=== PATIENT | male | born 1980 | race Caucasian/White ===

== ENCOUNTER 2016-10-29 13:01 | Emergency (ER) | payer OTHER ==
[2016-10-29 14:43] LABS: Urine Appearance Cloudy; Urine Bilirubin Negative (NEGATIVE); Urine Blood 150 /ul (NEGATIVE); Urine Color Yellow; Urine Ketone Negative (NEGATIVE); Urine Protein 30 mg/dL (NEGATIVE)
[2016-10-29 14:44] LABS: Urine Bacteria 4+; Urine Nitrite Negative (NEGATIVE); Urine Urobilinogen Normal (NORMAL); Urine WBC >50 /hpf (0-5)
[2016-10-29] MEDS ORDERED: HYDROmorphone HCL 1 MG/ML DISP.SYRIN IV ONE (15:26)
[2016-10-29] MEDS ORDERED: NORMAL SALINE 1,000 ML IV ONE (15:29)
[2016-10-29] MEDS ORDERED: HYDROmorphone HCL 1 MG/ML DISP.SYRIN ONE (15:37)
--- OUTSIDE RECORDS SUMMARY | 2016-10-29 15:42 | XMS REPORT | Continuity of Care Document ---
:1980 Author Organization [facility] ([facility]) Address [address] [place] [address] Phone [phone] Care Team Providers Name Role Phone MarianaBenny Primary Care Provider [phone] Source Comments This disclosure is being made pursuant to the Care Everywhere program, applicable federal and state laws, and may not contain all informaitonavailable regarding this patient.[facility] ([facility]) Active Allergies and Adverse Reactions No Known Allergies Current Medications Prescription Sig. Disp. Refills Start Date End Date Status warfarin 1 mg tablet Take 2 mg by mouth Active daily INR/Dosing per Jonathan Peña, #[phone] metFORMIN 500 mg tablet Take 500 mg by mouth Active daily. loratadine 10 mg tablet Take 10 mg by mouth Active daily as needed (Seasonal Use) OXYGEN-AIR DELIVERY at bedtime Active SYSTEMS (HORIZON NASAL CPAP SYSTEM NA ) HYDROCODONE-ACETAMINOPHE 12/25/2014 Active N 5-325 mg per tablet ONDANSETRON 8 mg 12/25/2014 Active disintegrating tablet TAMSULOSIN 0.4 mg 12/31/2014 Active capsule Active Problems Problem Noted Date Morbid obesity 03/12/2015 Paroxysmal atrial fibrillation 04/06/2013 Tachycardia-induced cardiomyopathy 02/14/2013 Biventricular heart failure with reduced left ventricular function 02/14/2013 Atrial fibrillation with rapid ventricular response 02/14/2013 Biventricular CHF (congestive heart failure) 02/13/2013 Systolic CHF, acute on chronic 02/13/2013 Pneumonia, organism unspecified 02/08/2013 Cough 02/08/2013 Tobacco use disorder 01/06/2013 HTN (hypertension) 01/06/2013 Obesity, unspecified 01/06/2013 Mediastinal mass 01/06/2013 Dysphagia 01/06/2013 Cardiomyopathy in other diseases classified elsewhere 01/06/2013 DVT, lower extremity 01/06/2013 Hyperlipidemia 01/06/2013 Resolved Problems Problem Noted Date Resolved Date Atrial fibrillation status post cardioversion 01/06/2013 04/06/2013 Immunizations Name Dates Previously Given Next Due Pneumococcal Polysaccharide, PPSV23 (Pneumovax 23) 02/09/2013 Pneumococcal, unspecified 12/24/2012 Social History Tobacco Use Types Packs/Day Years Used Date Former Smoker Cigarettes 0.5 15 Smokeless Tobacco: Never Used Tobacco Cessation:Ready to Quit: Yes; Counseling Given: Yes Comments: Alcohol Use Drinks/Week oz/Week Comments Yes 1 Cans of beer Last Filed Vital Signs Vital Sign Reading Time Taken Blood Pressure 122/64 03/12/2015 12:54 PM CDT Pulse 95 03/12/2015 10:53 AM CDT Temperature 35.8 C (96.4 F) 10/24/2014 9:32 AM CDT Respiratory Rate 14 03/12/2015 10:53 AM CDT Height 1.854 m (6' 1") 03/12/2015 10:53 AM CDT Weight 138.347 kg (305 lb) 03/12/2015 10:53 AM CDT Body Mass Index 40.25 03/12/2015 10:53 AM CDT Oxygen Saturation 95% 03/12/2015 12:54 PM CDT Plan of Care Health Maintenance Due Date Last Done Comments Hepatitis B Vaccine (1 of 3 - Primary Series) 1980 Tdap Vaccine 1989 MMR Vaccine 1996 Td Vaccine 1996 Influenza Vaccine: Seasonal (Season Ended) 2017 Lipid Disorder Screening 01/03/2018 01/03/2013 Pneumococcal Vaccine Completed 02/09/2013 Results from Last 3 Months Not on file
--- OUTSIDE RECORDS SUMMARY | 2016-10-29 15:42 | XMS REPORT | Continuity of Care Document ---
:1980 Author Organization [facility] [place] [address] Care Team Providers Name Role Phone MarianaBenny Primary Care Provider [phone] Source Comments This disclosure is being made pursuant to the [employer] program and contain all information available regarding this patient.[facility] Active Allergies and Adverse Reactions No Known Allergies Current Medications Be aware that medications may not be up to date as of this document. Alwaysverify current medications with the patient. Prescription Sig. Disp. Refills Start Date End Date Status warfarin (COUMADIN) Take 2 mg by Active 2 MG tablet mouth every evening. metFORMIN Take 500 mg Active (GLUCOPHAGE) 500 MG by mouth 2 tablet (two) times daily with meals. metoprolol Take 100 mg Active succinate by mouth (TOPROL-XL) 100 MG daily. 24 hr tablet atorvastatin 09/12/2016 Active (LIPITOR) 20 MG tablet amiodarone Take 1 tablet 30 tablet 11 10/13/2016 Active (PACERONE) 200 MG by mouth tablet daily. amiodarone Take 200 mg 10/12/2016 Discontinued (PACERONE) 200 MG by mouth tablet daily. atorvastatin Take 20 mg by 10/12/2016 Discontinued (LIPITOR) 10 MG mouth daily. tablet amiodarone Take 1 tablet 30 tablet 3 10/12/2016 10/13/2016 Discontinued (PACERONE) 200 MG by mouth tablet daily. sulfamethoxazole-tr Take 1 tablet 8 tablet 0 10/13/2016 10/17/2016 imethoprim (BACTRIM by mouth 2 DS,SEPTRA DS) (two) times 800-160 MG per daily. tablet Active Problems Problem Noted Date Gross hematuria 06/11/2014 Most Recent Encounters Date Type Specialty Providers Description 10/13/2016 Refill Cardiology Deisy Leon CMA Medication Refill 10/13/2016 Telephone Cardiology Deisy Leon CMA Results 10/12/2016 Office Visit Cardiology Meghan Murdock NP Coronary artery disease involving [place] coronary artery of [place] heart without angina pectoris (Primary Dx); Paroxysmal atrial fibrillation (HCC); On amiodarone therapy; Dysuria; History of DVT (deep vein thrombosis) 10/12/2016 Orders Only Cardiology Deisy Leon CMA Social History Tobacco Use Types Packs/Day Years Used Date Former Smoker 0.5 20 Smokeless Tobacco: Former User Quit: 10/24/2014 Tobacco Cessation:Counseling Given: Yes Comments: Alcohol Use Drinks/Week oz/Week Comments Yes 6 Cans of beer 3.6 Last Filed Vital Signs Vital Sign Reading Time Taken Blood Pressure 130/78 10/12/2016 2:41 PM CDT Pulse 70 10/12/2016 2:41 PM CDT Temperature 36.6 C (97.9 F) 01/20/2015 3:59 PM CDT Respiratory Rate 20 01/20/2015 3:59 PM CDT Height 1.854 m (6' 1") 12/31/2014 9:59 AM CDT Weight 156.945 kg (346 lb) 06/15/2016 1:40 PM [employer] Body Mass Index 45.66 06/15/2016 1:40 PM [employer] Oxygen Saturation 97% 10/12/2016 2:41 PM CDT Plan of Care Date Type Specialty Providers Description 11/10/2016 Appointment Cardiology Meghan Murdock, [address] [address] [place] [address] [phone] (Fax) Health Maintenance Due Date Last Done Comments Lab-Lipids 1980 LAB-HgA1C 1983 Eye (Ophthalmology) Exam 1988 Foot Exam 1988 Lab-Urine Microalbumin 1988 Tetanus/Pertussis (1 - Tdap) 1997 Influenza Immunization (#1) 2016 Results from Last 3 Months Urinalysis with microscopic (10/12/2016 3:20 PM) Component Value Range *NGUYEN TYPE Clean Catch Color, Fluid Yellow Yellow Clarity, Fluid Turbid(A) Clear Specific [place] 1.016 1.001-1.035 pH 6.5 5.0-8.0 Leukocyte Esterase, UA 3+(A) Negative Nitrite Positive(A) Negative Protein 2+(A) Negative Glucose, Urinalysis Negative Negative Ketones, UA Negative Negative Urobilinogen Negative Negative Bilirubin Urine Negative Negative Blood 3+(A) Negative WBC >200(A)Comment:Culture ordered by lab if not 0-2 already ordered by physician. RBC >50(A) 0-2 Epithelial Cells, Fluid None <2+ Bacteria 4+(A) None Specimen Cln Catch Narrative Testing performed at [facility], [address] [place] [address].[employer] Guille Cruz MD Urine culture (10/12/2016 3:20 PM) Component Value Range Urine Culture, Routine Microbiology resultsComment: NGUYEN TYPE Clean Catch COLONY COUNT >100,000 cfu/ml RESULT Escherichia coli (Isolate 1) SENSITIVITY ANALYSISIsolate 1 AMPICILLIN >16R AMPICILLIN-NDEZGNNGB53/8I CEFAZOLIN<=8 S CIPROFLOXACIN >4R NITROFURANTOIN<=32S TRIMETHOPRIM/SULFA<=2/38S Narrative Testing performed at [facility], [address] [place] [address].[employer] Guille Cruz MD EKG 12 lead (10/12/2016 3:01 PM) Narrative Vent Rate: 67 bpm RR Interval: 885 msec [place] Interval: 164 msec QRS Duration: 121 msec QT Interval: 421 msec QTC Interval: 437 msec P-R-T [place]: 62 - -60 - -54 degrees SINUS RHYTHM LEFT ANTERIOR FASCICULAR BLOCK[QRS AXIS <=-45, QR IN I, RS IN II] POSSIBLE LEFT VENTRICULAR HYPERTROPHY[VOLTAGE CRITERIA PLUS LAE OR QRS WIDENING] PROBABLE LATERAL MYOCARDIAL INFARCTION , OF INDETERMINATE AGE [35 ms Q WAVE IN I/aVL/V5/V6] MODERATE T-WAVE ABNORMALITY, CONSIDER INFERIOR ISCHEMIA[-0.1+ mV T WAVE IN II/aVF] ABNORMAL ECG Electronically Signed By: Malinda Galaviz Procedure Note Ian, External Ris In - MonOct 18, 2016 6:31 PM CDT Vent Rate: 67 bpm RR Interval: 885 msec [place] Interval: 164 msec QRS Duration: 121 msec QT Interval: 421 msec QTC Interval: 437 msec P-R-T [place]: 62 - -60 - -54 degrees SINUS RHYTHM LEFT ANTERIOR FASCICULAR BLOCK [QRS AXIS <=-45, QR IN I, RS IN II] POSSIBLE LEFT VENTRICULAR HYPERTROPHY [VOLTAGE CRITERIA PLUS LAE OR QRS WIDENING] PROBABLE LATERAL MYOCARDIAL INFARCTION , OF INDETERMINATE AGE [35 ms Q WAVE IN I/aVL/V5/V6] MODERATE T-WAVE ABNORMALITY, CONSIDER INFERIOR ISCHEMIA [-0.1+ mV T WAVE IN II/aVF] ABNORMAL ECG Electronically Signed By: Malinda Baker M.D.
[2016-10-29 15:54] LABS: Cocaine Ur Negative (NEGATIVE); Urine Barbiturate Negative (NEGATIVE); Urine Benzodiazepines Negative (NEGATIVE); Urine Opiates Negative (NEGATIVE); Urine PCP Negative (NEGATIVE); Urine THC Negative (NEGATIVE)
[2016-10-29 16:23] LABS: Hemoglobin 15.4 gm/dL (13.5-18.0); Mean Cell Volume 88.6 fl (78-100); Mean Corpuscular Hemoglobin 29.7 pg (27-31); Mean Corpuscular Hgb Conc 33.5 g/dl (32-36); Mean Platelet Volume 12.8 fl (6.0-9.5); Neutrophil # 3.2 K/mm3 (1.3-6.0); Neutrophil % 49.5 % (42-75.0); Platelet Count 181 K/mm3 (150-450); Red Blood Count 5.19 M/mm3 (4.7-6.0); Red Cell Distribution Width 13.9 % (11.5-14.0); White Blood Count 6.5 K/mm3 (4.0-10.5)
[2016-10-29 16:30] VITALS: BP 123/91
[2016-10-29 16:34] LABS: Albumin * 3.4 gm/dl (3.4-5.0); Anion Gap 13.6 mmol/L (6.8-13.8); Bilirubin, Total 0.7 mg/dL (0.0-1.1); Ca. Corrected For Albumin 9.3 mg/dL (8.4-10.2); Calcium * 9.1 mg/dL (7.9-10.9); Carbon Dioxide 27.5 mmol/L (24-32.6); Potassium 5.1 mmol/L (3.4-4.6); Total Protein 8.2 gm/dL (6.2-8.2)
--- NOTE | 2016-10-29 17:34 | ERNOTE ---
ER Male HPI Date of Service: 10/29/16 Stated Complaint: UTI ER Male: testicular pain Time Seen by Provider: 10/29/16 15:16 Immunizations: IMMUNIZATION HX Immunizations Up to Date Yes History of Influenza Vaccine No Hx Pneumococcal Vaccination No Allergies/Adverse Reactions: Allergies No Known Allergies Allergy (Verified 10/29/16 16:24) Home Medications: HOME MEDICATIONS Metoprolol Tartrate [Lopressor] 100 mg PO DAILY 02/27/13 [Last Taken Unknown] Warfarin Sodium [Coumadin] 2 mg PO DAILY 02/22/14 [Last Taken Unknown] metFORMIN HCL [Glucophage] 500 mg PO DAILY 10/18/14 [Last Taken Unknown] Amiodarone HCl [Cordarone] 200 mg PO DAILY 08/11/15 [Last Taken Unknown] Atorvastatin Calcium [Lipitor] 20 mg PO DAILY 10/29/16 [Last Taken Unknown] Cefuroxime Axetil [Ceftin] 250 mg PO Q12H #14 tab 10/29/16 [Last Taken Unknown] Cranberry Fruit Extract [Cranberry] 500 mg PO DAILY 10/29/16 [Last Taken Unknown ] HYDROcodone/ACETAMINOPHEN [Hydrocodon-Acetaminophen 5-325] 1 each PO TID PRN # 20 tablet 10/29/16 [Last Taken Unknown] - History of Present Illness Narrative: 36 y/o male presenting to the emergency room for what he states is a UTI. Patient also has testicular pain. Date (Duration): 10/29/16 Timing: Present: getting worse Quality: Present: moderate Onset Location: Present: groin, scrotal Activities at Onset: Present: none Prior Abdominal Problems: Present: none Sexual Matheny History: Present: less than 2 months ago, single partner Modifying Factors - (Improves): Present: rest Modifying Factors - (Worsens): Present: coughing, movement, palpation Associated Symptoms: Present: abdominal pain, dysuria. Absent: fever/chills, diaphoresis, nausea, vomiting Review of Systems - Review of Systems Constitutional: Present: See HPI. Absent: recent illness, fever EYE: Present: no symptoms reported ENT: Present: no symptoms reported Respiratory: Present: no symptoms reported Cardiology: Present: no symptoms reported Gastrointestinal/Abdominal: Present: no symptoms reported Genitourinary: Present: See HPI, pain - to scrotum Musculoskeletal: Present: no symptoms reported Skin: Present: no symptoms reported Neurological: Present: no symptoms reported Endocrine: Present: no symptoms reported Hematologic/Lymphatic: Present: no symptoms reported Psych: Present: no symptoms reported - Patient's Past Medical History Patient History - Medical: ADHD, Diabetes Type 2, Kidney stone, Obesity, UTI'S, Other Patient History - Cardiac/Respiratory: No pertinent hx, Atrial Fibrillation Patient History - Cancer: No Hx of Cancer Patient History - Surgical Procedures: Other Patient History - Other: None - Social History Living Situations: alone Abuse History: No History of abuse Psych History: No pertinent hx Smoking Status: Former smoker Have you smoked in the past 12 months: Yes Alcohol Use: rarely Drug Use: none - Immunizations Immunizations Up to Date: Yes Hx Pneumococcal Vaccination: No History of Influenza Vaccine: No Physical Exam - Physical Exam Narrative: patient c/o left sided lower groin/ abd pain and also of testicular pain.. States he started having symptoms about a week ago, he took OTC cranberry pills and motrin for pain. They did not work. States he has intercourse 3 weeks ago. General Appearance: Present: wd/wn, alert, moderate distress Eye Exam: Normal inspection: bilateral Ears, Nose, Throat: Present: normal ENT inspection, normal pharynx Neck: Present: normal inspection, nontender Respiratory: Present: no respiratory distress, normal breath sounds, no accessory muscle use, chest nontender, lungs clear Cardiovascular/Chest: Present: regular rate, rhythm, no murmur, normal peripheral pulses. Absent: irregularly irregular Gastrointestinal/Abdominal: Present: normal bowel sounds, nontender, nondistended Male Genitals Exam: Present: no hernia, epididymal tenderness, inguinal tenderness, scrotum tenderness (R), scrotum tenderness (L), testicular tenderness (R), testicular tenderness (L) Back Exam: Present: normal inspection, normal range of motion, no CVA tenderness , no vertebral tenderness Extremity Exam: Present: normal inspection, normal range of motion, no edema Neurological Exam: Present: alert, oriented, normal mood/affect, no motor/ sensory deficits Skin Exam: Present: normal color, warm/dry Lymphatic Exam: Present: no adenopathy ED Progress - Results and Orders Patient's Lab Results:: I have reviewed the patient's lab results. Results and Orders: positive UA, elevated liver enzymes. - Vital Signs Vital Signs: Vital Signs 10/29/16 10/29/16 10/29/16 13:51 16:25 16:29 Temperature 36.9 C 37.2 C Pulse Rate 75 102 H Respiratory 16 14 Rate Blood Pressure 159/111 123/91 O2 Sat by Pulse 98 95 Oximetry - CT/Ultrasound CT/Ultrasound Narrative: Technique: Ultrasound grayscale images were obtained of the right and left scrotum. The testicles were evaluated using color-flow and Doppler technique. Findings: Right side: The right testicle measures 4.3 x 2.2 x 2.8 cm. The right testicle is homogeneous in appearance and I'm not convinced of definable lesion. The epididymal head measures 1.0 x 0.7 cm. The epididymal head is within normal limits. The visualized epididymal body appears normal. There is a small amount of fluid identified within the scrotum. There is vascular flow is identified within the right testicle using color-flow and Doppler technique a time of the examination. Left side: The left testicle measures 4.3 x 2.3 x 3.0 cm. The testicular parenchyma is homogeneous in appearance and I'm not convinced of definable lesion. The epididymal head measures 1.5 x 1.4 cm. The epididymal head and body appear mildly prominent. There is a small amount of fluid within the left scrotum. There is vascular flow identified within the left testicle using color-flow and Doppler technique real-time examination. IMPRESSION: 1. VERY SMALL RIGHT SIDED HYDROCELE, OTHERWISE NORMAL RIGHT SCROTUM.. 2. PROMINENT LEFT EPIDIDYMIS, SUGGESTING EPIDIDYMITIS. CLINICAL CORRELATION REQUIRED. 3. SMALL LEFT SIDED HYDROCELE. Electronically signed by Rolando Gatica M.D.. - Progress/Reassessment Chief Complaint: Urinary Tract Problems Progress:: Improved Plan - Plan Plan: patient will be notified of his STD test results by the hospital. Patient encouraged to let his partner know she may need to be tested as well. Departure Clinical Impression: Epididymitis - Departure Disposition: Home Follow Up Needed Condition: Stable Instructions: Epididymitis Additional Instructions: Continue any previous home medications as directed. Follow-up through primary care physician in the next 2-3 days regarding his diagnosis. Take all antibiotics as directed. Return to the emergency room if pain is not able to be controlled, unable to void or you have increased swelling or discomfort. Referrals: Benny Peña MD [Primary Care Provider] - Prescriptions: Cefuroxime Axetil [Ceftin] 250 mg PO Q12H #14 tab HYDROcodone/ACETAMINOPHEN [Hydrocodon-Acetaminophen 5-325] 1 each PO TID PRN # 20 tablet PRN Reason: Pain
== END 2016-10-29 17:45 | disposition home or self-care (01) ==
LOC: ER 13:01
DX: N45.1 Epididymitis (principal); Z87.442 Personal history of urinary calculi; Z87.440 Personal history of urinary (tract) infections; E11.9 Type 2 diabetes mellitus without complications; I48.91 Unspecified atrial fibrillation; Z79.01 Long term (current) use of anticoagulants; Z87.891 Personal history of nicotine dependence

== ENCOUNTER 2016-10-30 16:34 | Emergency (ER) | payer OTHER ==
--- OUTSIDE RECORDS SUMMARY | 2016-10-30 17:06 | XMS REPORT | Continuity of Care Document ---
:1980 Author Organization [facility] [place] [address] Care Team Providers Name Role Phone MarianaBenny Primary Care Provider [phone] Source Comments This disclosure is being made pursuant to the [employer] program and contain all information available regarding this patient.[facility] Active Allergies and Adverse Reactions No Known [...] Meghan Murdock NP Coronary artery disease involving [place] coronary artery of [place] heart without angina pectoris (Primary Dx); Paroxysmal [...] 156.945 kg (346 lb) 06/15/2016 1:40 PM [employer] Body Mass Index 45.66 06/15/2016 1:40 PM [employer] Oxygen Saturation 97% 10/12/2016 2:41 PM CDT Plan of Care Date Type Specialty Providers Description 11/10/2016 Appointment Cardiology Meghan Murdock, [facility] [address] [place] [address] [phone] (Fax) Health Maintenance Due Date Last Done Comments Lab-Lipids 1980 LAB-HgA1C 1983 Eye (Ophthalmology) Exam 1988 Foot Exam 1988 Lab-Urine Microalbumin 1988 Tetanus/Pertussis (1 - Tdap) 1997 Influenza Immunization (#1) 2016 Results from Last 3 Months Urinalysis with microscopic (10/12/2016 3:20 PM) Component Value Range *NGUYEN TYPE Clean Catch Color, Fluid Yellow Yellow Clarity, Fluid Turbid(A) Clear Specific [place] 1.016 1.001-1.035 pH 6.5 5.0-8.0 Leukocyte Esterase, [...] Specimen Cln Catch Narrative Testing performed at [facility], [address] [place] [address].Lathe Hand Guille Cruz MD Urine culture (10/12/2016 3:20 PM) Component Value Range Urine Culture, Routine Microbiology resultsComment: NGUYEN TYPE Clean Catch COLONY COUNT >100,000 cfu/ml RESULT Escherichia coli (Isolate 1) SENSITIVITY ANALYSISIsolate 1 AMPICILLIN >16R AMPICILLIN-BZGFOMTUL30/8I CEFAZOLIN<=8 S CIPROFLOXACIN >4R NITROFURANTOIN<=32S TRIMETHOPRIM/SULFA<=2/38S Narrative Testing performed at [facility], [address] [place] [address].[employer]athe Hand Guille Cruz MD EKG 12 lead (10/12/2016 3:01 PM) Narrative Vent Rate: 67 bpm RR Interval: 885 msec [place] Interval: 164 msec QRS Duration: 121 msec QT Interval: 421 msec QTC Interval: 437 msec P-R-T [place]: 62 - -60 - -54 degrees SINUS [...] Rate: 67 bpm RR Interval: 885 msec [place] Interval: 164 msec QRS Duration: 121 msec QT Interval: 421 msec QTC Interval: 437 msec P-R-T [place]: 62 - -60 - -54 degrees SINUS [...]
--- OUTSIDE RECORDS SUMMARY | 2016-10-30 17:06 | XMS REPORT | Continuity of Care Document ---
:1980 Author Organization [facility] ([facility]) Address [address] [place] [address] Phone [phone] Care Team Providers Name Role Phone MarianaBenny Primary Care Provider [phone] Source Comments This disclosure is being made pursuant to the Care Everywhere program, applicable federal and state laws, and may not contain all informaitonavailable regarding this patient.[facility] ([facility]) Active Allergies and Adverse Reactions No Known Allergies Current Medications Prescription Sig. Disp. Refills Start Date End Date Status warfarin 1 mg tablet Take 2 mg by mouth Active daily INR/Dosing per Jonathan Peña, #[phone] metFORMIN 500 mg tablet Take 500 mg [...]
[2016-10-30] MEDS ORDERED: KETOROLAC TROMETHAMINE 60 MG/2 ML VIAL IM ONE ×2 (17:22→17:28)
[2016-10-30] MEDS ORDERED: DOXYCYCLINE HYCLATE 100 MG TABLET PO ONE (17:23)
[2016-10-30] MEDS ORDERED: HYDROmorphone HCL 1 MG/ML DISP.SYRIN IM ONE (17:25)
[2016-10-30] MEDS ORDERED: HYDROmorphone HCL 1 MG/ML DISP.SYRIN ONE (17:28)
[2016-10-30] MEDS ORDERED: DOXYCYCLINE HYCLATE 100 MG TABLET ONE (17:29)
--- NOTE | 2016-10-30 17:36 | ERNOTE ---
ER Male HPI Date of Service: 10/30/16 Stated Complaint: ENLARGED TESTICLE ER Male: testicular pain Time Seen by Provider: 10/30/16 17:00 Source: patient Exam Limitations: no limitations Immunizations: IMMUNIZATION HX Immunizations Up to Date Yes History of Influenza Vaccine No Hx Pneumococcal Vaccination No Allergies/Adverse Reactions: Allergies No Known Allergies Allergy (Verified 10/30/16 17:25) Home Medications: HOME MEDICATIONS Metoprolol Tartrate [Lopressor] 100 mg PO DAILY 02/27/13 [Last Taken Unknown] Warfarin Sodium [Coumadin] 2 mg PO DAILY 02/22/14 [Last Taken Unknown] metFORMIN HCL [Glucophage] 500 mg PO DAILY 10/18/14 [Last Taken Unknown] Amiodarone HCl [Cordarone] 200 mg PO DAILY 08/11/15 [Last Taken Unknown] Atorvastatin Calcium [Lipitor] 20 mg PO DAILY 10/29/16 [Last Taken Unknown] Cefuroxime Axetil [Ceftin] 250 mg PO Q12H #14 tab 10/29/16 [Last Taken Unknown] Cranberry Fruit Extract [Cranberry] 500 mg PO DAILY 10/29/16 [Last Taken Unknown ] HYDROcodone/ACETAMINOPHEN [Hydrocodon-Acetaminophen 5-325] 1 each PO TID PRN # 20 tablet 10/29/16 [Last Taken Unknown] HYDROcodone/ACETAMINOPHEN [Hydrocodon-Acetaminophen 5-325] 1 each PO TID PRN # 20 tablet 10/30/16 [Last Taken Unknown] - History of Present Illness Narrative: 36-year-old male returning to the emergency room for increased pain and swelling related to his epididymitis in his left testicle. Date (Duration): 10/30/16 Timing: Present: constant Quality: Present: severe Onset Location: Present: scrotal Activities at Onset: Present: none Prior Abdominal Problems: Present: none Sexual Santel History: Present: less than 2 months ago Modifying Factors - (Improves): Present: analgesics, rest Modifying Factors - (Worsens): Present: movement Associated Symptoms: Absent: fever/chills, diaphoresis, nausea, vomiting, dysuria, urinary frequency, polyuria Prior Treatment: Present: recently seen, treated by physician, currently on antibiotics Review of Systems - Review of Systems Constitutional: Present: See HPI, recent illness EYE: Present: no symptoms reported ENT: Present: no symptoms reported Respiratory: Present: no symptoms reported Cardiology: Present: no symptoms reported Gastrointestinal/Abdominal: Present: no symptoms reported Genitourinary: Present: See HPI Musculoskeletal: Present: no symptoms reported Skin: Present: See HPI, change in color - red scrotum Neurological: Present: no symptoms reported Endocrine: Present: no symptoms reported Hematologic/Lymphatic: Present: no symptoms reported Psych: Present: no symptoms reported - Patient's Past Medical History Patient History - Medical: ADHD, Diabetes Type 2, Kidney stone, Obesity, UTI'S, Other Patient History - Cardiac/Respiratory: No pertinent hx, Atrial Fibrillation Patient History - Cancer: No Hx of Cancer Patient History - Surgical Procedures: Other Patient History - Other: None - Social History Living Situations: home Abuse History: No History of abuse Psych History: No pertinent hx Alcohol Use: rarely Drug Use: none - Immunizations Immunizations Up to Date: Yes Hx Pneumococcal Vaccination: No History of Influenza Vaccine: No Physical Exam - Physical Exam Narrative: This 36-year-old male presents to the emergency room. Patient does have increased pain to his testicles. Patient status: Are more red and swollen today than when I saw him yesterday. Patient is tender all over his scrotum. Patient walks with a wide waddling gait prevent pain. General Appearance: Present: wd/wn, alert, no apparent distress Eye Exam: Normal inspection: bilateral Ears, Nose, Throat: Present: normal ENT inspection Neck: Present: normal inspection Respiratory: Present: no respiratory distress, normal breath sounds, no accessory muscle use, chest nontender, lungs clear. Absent: chest tenderness Cardiovascular/Chest: Present: regular rate, rhythm, no murmur, normal peripheral pulses Gastrointestinal/Abdominal: Present: normal bowel sounds, nontender, soft Male Genitals Exam: Present: epididymal tenderness, erythema, scrotum tenderness (R), scrotum tenderness (L), testicular tenderness (R), testicular tenderness (L). Absent: urethral discharge Back Exam: Present: normal inspection, normal range of motion, no CVA tenderness , no vertebral tenderness Extremity Exam: Present: normal inspection, normal range of motion, no edema Neurological Exam: Present: alert, oriented, normal mood/affect, no motor/ sensory deficits Skin Exam: Present: normal color, warm/dry Lymphatic Exam: Present: no adenopathy ED Progress - Vital Signs Patient's Vital Signs:: I have reviewed the patient's vital signs. Vital Signs: Vital Signs 10/30/16 16:38 Temperature 36.2 C L Pulse Rate 90 Respiratory 12 Rate Blood Pressure 147/80 O2 Sat by Pulse 97 Oximetry - Progress/Reassessment Chief Complaint: Genitourinary Problem Progress:: Improved Plan - Plan Plan: Correlating this care with Dr. Clarke he is happy with the current treatment that we are giving this patient at this time. He states that the patient follow -up with him in the office this week regarding his epididymitis. No new orders from the consulting urologist Departure Clinical Impression: Epididymitis - Departure Disposition: Home Follow Up Needed Condition: Stable Instructions: Epididymitis, Form - Excuse from Work, School, or Physical Activity Additional Instructions: Any any previous home medications. Continue current antibiotic regimen. Return to emergency room if symptoms persist or become worse. Follow-up with the urologist next week related to your diagnosis. Referrals: Benny Peña MD [Primary Care Provider] - Prescriptions: HYDROcodone/ACETAMINOPHEN [Hydrocodon-Acetaminophen 5-325] 1 each PO TID PRN # 20 tablet PRN Reason: Pain
[2016-10-30 17:42] VITALS: BP 130/99
== END 2016-10-30 17:42 | disposition home or self-care (01) ==
LOC: ER 16:34
DX: N45.1 Epididymitis (principal); E11.9 Type 2 diabetes mellitus without complications; I48.91 Unspecified atrial fibrillation; Z79.01 Long term (current) use of anticoagulants

== ENCOUNTER 2016-12-16 03:13 | Emergency (ER) | payer OTHER ==
[2016-12-16 03:39] LABS: Hematocrit 45.7 % (42.0-52.0); Hemoglobin 15.2 gm/dL (13.5-18.0); Mean Cell Volume 88.4 fl (78-100); Mean Corpuscular Hemoglobin 29.4 pg (27-31); Mean Corpuscular Hgb Conc 33.3 g/dl (32-36); Neutrophil # 1.8 K/mm3 (1.3-6.0); Neutrophil % 30.9 % (42-75.0); Platelet Count 196 K/mm3 (150-450); Red Blood Count 5.17 M/mm3 (4.7-6.0); White Blood Count 5.7 K/mm3 (4.0-10.5)
[2016-12-16] MEDS ORDERED: KETOROLAC TROMETHAMINE 30 MG/ML VIAL ONE (03:42)
[2016-12-16] MEDS ORDERED: ONDANSETRON 4 MG TAB.RAPDIS PO ONE (03:42)
[2016-12-16] MEDS ORDERED: ONDANSETRON 4 MG TAB.RAPDIS ONE (03:42)
[2016-12-16] MEDS ORDERED: KETOROLAC TROMETHAMINE 30 MG/ML VIAL IV ONE (03:42)
[2016-12-16 03:52] LABS: Prothrombin Time (Patient) 30.8 Seconds (9.4-11.4)
[2016-12-16 03:53] LABS: Albumin * 3.6 gm/dl (3.4-5.0); Anion Gap 11.8 mmol/L (6.8-13.8); BUN/Creatinine Ratio 15.3 (9.0-21.6); Bilirubin, Total 0.3 mg/dL (0.0-1.1); Ca. Corrected For Albumin 8.8 mg/dL (8.4-10.2); Calcium * 8.8 mg/dL (7.9-10.9); Potassium 3.8 mmol/L (3.4-4.6); Total Protein 7.5 gm/dL (6.2-8.2)
[2016-12-16 03:53] LABS: INR 2.96 INR (0.90-1.10)
[2016-12-16 03:59] LABS: Urine Bilirubin Negative (NEGATIVE); Urine Ketone Negative (NEGATIVE); Urine Nitrite Negative (NEGATIVE); Urine Protein Negative (NEGATIVE); Urine Specific Gravity 1.025 SP.GR. (1.005-1.030); Urine Urobilinogen Normal (NORMAL)
[2016-12-16 04:04] LABS: Urine Appearance Clear; Urine Blood 10 /ul (NEGATIVE); Urine Color Yellow
--- OUTSIDE RECORDS SUMMARY | 2016-12-16 04:04 | XMS REPORT | Continuity of Care Document ---
:1980 Author Organization [facility] [place] [address] Care Team Providers Name Role Phone Mariana Benny Caro Primary Care Provider [phone] Source Comments This disclosure is being made pursuant to the [employer] program and maynot contain all information available regarding this patient.[facility] Active Allergies and Adverse Reactions No Known Allergies Current Medications Be aware that medications may not be up to date as of this document. Alwaysverify current medications with the patient. Prescription Sig. Disp. Refills Start Date End Date Status warfarin (COUMADIN) 2 Take 2 mg by Active MG tablet mouth every evening. metFORMIN (GLUCOPHAGE) Take 500 mg by Active 500 MG tablet mouth daily with breakfast. metoprolol succinate Take 100 mg by Active (TOPROL-XL) 100 MG 24 mouth daily. hr tablet atorvastatin (LIPITOR) 09/12/2016 Active 20 MG tablet amiodarone (PACERONE) Take 1 tablet by 30 tablet 11 10/13/2016 Active 200 MG tablet mouth daily. HYDROcodone-acetaminoph Take 1 tablet by 0 10/29/2016 Active en (NORCO) 5-325 MG per mouth 3 (three) tablet times daily as needed. for pain. cefUROXime (CEFTIN) 250 10/29/2016 Active MG tablet Active Problems Problem Noted Date Coronary artery disease involving [place] coronary artery of [place] heart 11/16 without angina pectoris Paroxysmal atrial fibrillation (HCC) 11/16/2016 History of DVT (deep vein thrombosis) 11/16/2016 On anticoagulant therapy 11/16/2016 On amiodarone therapy 11/16/2016 Epididymitis, left 11/14/2016 History of nephrolithiasis 11/11/2016 Gross hematuria 06/11/2014 Most Recent Encounters Date Type Specialty Providers Description 11/11/2016 Office Visit Urology Prince Isabel MD History of nephrolithiasis (Primary Dx); Epididymitis, left 11/10/2016 Office Visit Cardiology Meghan Murdock NP Coronary artery disease involving [place] coronary artery of [place] heart without angina pectoris (Primary Dx); Paroxysmal atrial fibrillation (HCC); On amiodarone therapy; History of DVT (deep vein thrombosis); On anticoagulant therapy 11/04/2016 Refill Urology Elizabeth Nagy LPN Epididymitis (Primary Dx) 11/03/2016 Telephone Urology Cayden Wall PA-C Follow-up 11/01/2016 Office Visit Urology Cayden Wall PA-C Nephrolithiasis ( Primary Dx); Epididymitis, left; Gross hematuria 11/01/2016 Telephone Urology Hazel Girard, DELMA Other 10/13/2016 Refill Cardiology Deisy Leon CMA Medication Refill 10/13/2016 Telephone Cardiology Deisy Leon CMA Results 10/12/2016 Office Visit Cardiology Meghan Murdock NP Coronary artery disease involving [place] coronary artery of [place] heart without angina pectoris (Primary Dx); Paroxysmal [...] Vital Sign Reading Time Taken Blood Pressure 120/86 11/11/2016 9:55 AM CDT Pulse 60 11/11/2016 9:55 AM CDT Temperature 36.7 C (98.1 F) 11/11/2016 9:55 AM CDT Respiratory Rate 22 11/11/2016 9:55 AM CDT Height 1.829 m (6') 11/11/2016 9:55 AM CDT Weight 156.945 kg (346 lb) 11/11/2016 9:55 AM CDT Body Mass Index 46.92 11/11/2016 9:55 AM CDT Oxygen Saturation 96% 11/10/2016 7:11 AM CDT Plan of Care Date Type Specialty Providers Description 02/16/2017 Appointment Cardiology Meghan Murdock, [address] [place] [address] [phone] (Fax) 11/10/2017 Appointment Urology Cayden Wall PA-C [facility] [address] [phone]) Health Maintenance Due Date Last Done Comments Lab-Lipids 1978 LAB-HgA1C 1983 Eye (Ophthalmology) Exam 1988 Foot Exam 1988 Lab-Urine Microalbumin 1988 Tetanus/Pertussis (1 - Tdap) 1997 Influenza Immunization (#1) 2016 Results from Last 3 Months EKG 12 lead (11/10/2016 7:17 AM)Only the most recent of2 resultswithin the time period is included. Narrative Vent Rate: 96 bpm RR Interval: 623 msec [place] Interval: 278 msec QRS Duration: 118 msec QT Interval: 400 msec QTC Interval: 453 msec P-R-T [place]: -84 - -49 - -21 degrees ELECTRONIC ATRIAL PACEMAKER LEFT ANTERIOR FASCICULAR BLOCK[QRS AXIS <=-45, QR IN I, RS IN II] MODERATE T-WAVE ABNORMALITY, CONSIDER INFERIOR ISCHEMIA[-0.1+ mV T WAVE IN II/aVF] ABNORMAL ECG Electronically Signed By: Malinda Galaviz Procedure Note Ian, External Ris In - MonNovember 14, 2016 12:36 PM CDT Vent Rate: 96 bpm RR Interval: 623 msec [place] Interval: 278 msec QRS Duration: 118 msec QT Interval: 400 msec QTC Interval: 453 msec P-R-T [place]: -84 - -49 - -21 degrees ELECTRONIC ATRIAL PACEMAKER LEFT ANTERIOR FASCICULAR BLOCK [QRS AXIS <=-45, QR IN I, RS IN II] MODERATE T-WAVE ABNORMALITY, CONSIDER INFERIOR ISCHEMIA [-0.1+ mV T WAVE IN II/aVF] ABNORMAL ECG Electronically Signed By: Malinda Baker M.D. Urinalysis with microscopic (11/03/2016 2:05 PM)Only the most recent of2 resultswithin the time period is included. Component Value Range *NGUYEN TYPE Clean Catch Color, Fluid Yellow Yellow Clarity, Fluid Clear Clear Specific [place] 1.021 1.001-1.035 pH 6.0 5.0-8.0 Leukocyte Esterase, UA Trace(A) Negative Nitrite Negative Negative Protein Trace(A) Negative Glucose, Urinalysis Negative Negative Ketones, UA Negative Negative Urobilinogen Negative Negative Bilirubin Urine Negative Negative Blood Negative Negative WBC 3-6(A)Comment:Culture ordered by lab if not 0-2 already ordered by physician RBC 0-2 0-2 Epithelial Cells, Fluid None <2+ Bacteria None None Specimen Cln Catch Narrative Testing performed at [facility], [address] [place] [address].Dynamometer Tester Guille Cruz MD Urine culture (11/03/2016 2:05 PM)Only the most recent of2 resultswithin the time period is included. Component Value Range Urine Culture, Routine Microbiology resultsComment: NGU[place]EN TYPE Clean Catch RESULT NO GROWTH Narrative This order was split into 2 orders: [id number] (UA WITH MICRO), [id number] (Urine Culture) Testing performed at [facility], [address] [place] [address].Dynamometer Tester Guille Cruz MD US SCROTUM AND CONTENTS (11/03/2016 1:54 PM) Narrative US SCROTUM AND CONTENTS Reason: REASON FOR EXAM:->TESTICLE PAIN AND SWELLING Clinical History: LEFT TESTICLE PAIN AND SWELLING FOR 1 WEEK Prior Studies: NO PRIOR...... Right and left testicles measure 3.83 cm and 3.86 cm at the greatest diameter respectively.Homogenous echogenic texture of each testicle.Vascular flow identified within each testicle. Small right hydrocele.Large left hydrocele noted. Hypervascular flow of the left epididymis. Impressions: 1.No testicular torsion. 2.Left epididymitis with large left hydrocele. THIS IS AN ELECTRONICALLY SIGNED REPORT BY READING PHYSICIAN: Dr. Rolando Munroe D.O.2016-11-03 14:09:35 Procedure Note Ian, External Ris In - [place] November 03, 2016 2:10 PM CDT US SCROTUM AND CONTENTS Reason: REASON FOR EXAM:->TESTICLE PAIN AND SWELLING Clinical History: LEFT TESTICLE PAIN AND SWELLING FOR 1 WEEK Prior Studies: NO PRIOR...... Right and left testicles measure 3.83 cm and 3.86 cm at the greatest diameter respectively. Homogenous echogenic texture of each testicle. Vascular flow identified within each testicle. Small right hydrocele. Large left hydrocele noted. Hypervascular flow of the left epididymis. Impressions: 1. No testicular torsion. 2. Left epididymitis with large left hydrocele. THIS IS AN ELECTRONICALLY SIGNED REPORT BY READING PHYSICIAN: Dr. Rolando Munroe D.O. 2016-11-03 14:09:35 XR ABDOMEN AP 1 VIEW (11/01/2016 12:12 PM) Narrative XR ABDOMEN AP 1 VIEW Clinical History: hx of kidney stones, swollen testicle, gross hematuria Technique: 2 views of the abdomen were obtained Comparison: 01/20/2015 Findings: 4 round calcifications project over the lower pole of the right kidney.They are all about 6 mm in diameter.They are unchanged.A large amount of stool is seen throughout the colon. Impressions: 1.Multiple calculi in the lower pole of the right kidney. These are unchanged. THIS IS AN ELECTRONICALLY SIGNED REPORT BY READING PHYSICIAN: Mikey [id number] 15:22:04 Procedure Note Ian, External Ris In - Tue November 01, 2016 3:22 PM CDT XR ABDOMEN AP 1 VIEW Clinical History: hx of kidney stones, swollen testicle, gross hematuria Technique: 2 views of the abdomen were obtained Comparison: 01/20/2015 Findings: 4 round calcifications project over the lower pole of the right kidney. They are all about 6 mm in diameter. They are unchanged. A large amount of stool is seen throughout the colon. Impressions: 1. Multiple calculi in the lower pole of the right kidney. These are unchanged. THIS IS AN ELECTRONICALLY SIGNED REPORT BY READING PHYSICIAN: Mikey Bass 2016-11-01 15:22:04
[2016-12-16 04:05] LABS: Urine Bacteria None Seen; Urine RBC 0-5 /hpf (0-5); Urine WBC 0-5 /hpf (0-5)
--- NOTE | 2016-12-16 04:21 | ERNOTE ---
Abdominal HPI - Narrative Date of Service: 12/16/16 - General Chief Complaint: Abdominal Pain Time Seen by Provider: 12/16/16 04:09 Source: patient Exam Limitations: no limitations - Immun/Allergies/Home Medications Immunizatons: IMMUNIZATION HX Immunizations Up to Date Yes History of Influenza Vaccine No Hx Pneumococcal Vaccination No Allergies/Adverse Reactions: Allergies No Known Allergies Allergy (Verified 12/17/16 09:03) Home Medications: HOME MEDICATIONS metFORMIN HCL [Glucophage] 500 mg PO DAILY 10/18/14 [Last Taken Unknown] Amiodarone HCl [Cordarone] 200 mg PO DAILY 08/11/15 [Last Taken Unknown] Albuterol Sulfate [Albuterol Sulfate 2.5 MG/3 ML] 2.5 mg IH Q4H PRN 12/16/16 [ Last Taken Unknown] Albuterol Sulfate [Ventolin HFA] 2 puff IH Q4H PRN 12/16/16 [Last Taken Unknown] Atorvastatin Calcium [Lipitor] 20 mg PO HS 12/16/16 [Last Taken Unknown] Blood-Glucose Meter [Blood Glucose Monitoring] 1 each MC DAILY 12/16/16 [Last Taken Unknown] HYDROcodone/ACETAMINOPHEN [[place] 5-325] 1 each PO Q4H PRN #30 tablet 12/16/16 [ Last Taken Unknown] HYDROcodone/ACETAMINOPHEN [[place] 7.5-325 Tablet] 1 each PO QID PRN #10 tablet [Last Taken Unknown] Metoprolol Succinate [Toprol Xl] 100 mg PO DAILY 12/16/16 [Last Taken 12/16/16 07:00] Naproxen [Naprosyn] 500 mg PO BID PRN #20 tablet 12/16/16 [Last Taken Unknown] Warfarin Sodium [Coumadin] 2 mg PO DAILY 12/16/16 [Last Taken 12/15/16] Sulfamethoxazole/Trimethoprim [Bactrim Ds] 1 tab PO BID #20 tab 12/26/16 [Last Taken Unknown] - History of Present Illness Narrative: Awoken by RLQ pain that is sharp and does not radiate. The pain is similar to a kidney stone but the location if more anterior that where the stones are usually located. No complaints of dysuria, frequency, lower back pain, fevers, chills, or N/V. The pain is moderate to severe. Normal bowel movement yesterday. [facility]; A fib; diverticulitis, COPD Date (Duration): 12/16/16 Timing: constant Quality: moderate, severe Activities at Onset: sleep Modifying Factors - (Improves): Present: other - standing Modifying Factors - (Worsens): Present: lying down Associated Symptoms: Present: denies symptoms Review of Systems - Review of Systems Constitutional: Present: no symptoms reported EYE: Present: no symptoms reported ENT: Present: no symptoms reported Respiratory: Present: no symptoms reported Cardiology: Present: no symptoms reported Gastrointestinal/Abdominal: Present: See HPI Genitourinary: Present: no symptoms reported Musculoskeletal: Present: no symptoms reported Skin: Present: no symptoms reported Neurological: Present: no symptoms reported Endocrine: Present: no symptoms reported Hematologic/Lymphatic: Present: no symptoms reported Psych: Present: no symptoms reported - Patient's Past Medical History Patient History - Medical: ADHD, Diabetes Type 2, Kidney stone, Obesity, UTI'S, Other Patient History - Cardiac/Respiratory: Atrial Fibrillation Patient History - Cancer: No Hx of Cancer Patient History - Surgical Procedures: Other Patient History - Other: None - Social History Living Situations: home Abuse History: No History of abuse Psych History: No pertinent hx Smoking Status: Current every day smoker Alcohol Use: rarely Drug Use: none - Immunizations Immunizations Up to Date: Yes Hx Pneumococcal Vaccination: No History of Influenza Vaccine: No Physical Exam - Physical Exam General Appearance: Present: mild distress Head Exam: Present: normal inspection Eye Exam: Normal inspection: bilateral Ears, Nose, Throat: Present: normal ENT inspection Neck: Present: normal inspection Respiratory: Present: no respiratory distress Cardiovascular/Chest: Present: regular rate, rhythm Gastrointestinal/Abdominal: Present: nontender, nondistended, no organomegaly Back Exam: Present: normal inspection, no CVA tenderness Extremity Exam: Present: normal inspection Neurological Exam: Present: alert, oriented Skin Exam: Present: normal color, warm/dry ED Progress - Results and Orders Patient's Lab Results:: I have reviewed the patient's lab results. - Vital Signs Patient's Vital Signs:: I have reviewed the patient's vital signs. Vital Signs: Vital Signs 12/16/16 12/16/16 03:26 03:38 Temperature 36.3 C L Pulse Rate 99 99 Respiratory 19 20 Rate Blood Pressure 157/113 O2 Sat by Pulse 103 H 95 Oximetry - CT/Ultrasound CT/Ultrasound Narrative: CT abdomen and pelvis- 8 mm stone at the right UVJ. - Progress/Reassessment Chief Complaint: Abdominal Pain Progress:: Improved Progress Note-Subjective: 12/16/16 05:[address] Hood who would like to have the patient follow up in the clinic this morning. 12/16/16 05:55 Pain is well controlled. Departure - Departure Clinical Impression: Ureterolithiasis Disposition: Home self-care Condition: Good Instructions: Kidney Stones, [id number] Print Language: Ch[place] Additional Instructions: Drink lots of water. Follow up in the urology clinic in [place] with Dr. Clarke this morning. Referrals: Benny Peña MD [Primary Care Provider] - Prescriptions: HYDROcodone/ACETAMINOPHEN [[place] 7.5-325 Tablet] 1 each PO QID PRN #10 tablet PRN Reason: Pain Naproxen [Naprosyn] 500 mg PO BID PRN #20 tablet PRN Reason: Pain
[2016-12-16 05:47] VITALS: BP 132/87
== END 2016-12-16 06:08 | disposition home or self-care (01) ==
LOC: ER 03:13
DX: N20.1 Calculus of ureter (principal); Z87.442 Personal history of urinary calculi; Z87.440 Personal history of urinary (tract) infections; E11.9 Type 2 diabetes mellitus without complications; I48.91 Unspecified atrial fibrillation; Z79.01 Long term (current) use of anticoagulants; F17.200 Nicotine dependence, unspecified, uncomplicated

== ENCOUNTER 2016-12-16 11:44 | Day surgery (SDC) | payer OTHER ==
[~2016-12-16 11:44] MED LIST: ACETAMINOPHEN WITH CODEINE 1 EACH TABLET PO PRN; MORPHINE SULFATE 2 MG/ML DISP.SYRIN IV PRN; OXYBUTYNIN CHLORIDE 5 MG TABLET PO PRN; oxyCODONE HCL/ACETAMINOPHEN 1 TAB TABLET PO PRN
--- OUTSIDE RECORDS SUMMARY | 2016-12-16 11:48 | XMS REPORT | Continuity of Care Document ---
:1980 Author Organization [facility] [place] [address] Care Team Providers Name Role Phone Mariana Benny Caro Primary Care Provider [phone] Source Comments This disclosure is being made pursuant to the [employer] program and maynot contain all information available regarding this patient.[facility] Active Allergies and Adverse Reactions No Known [...] Problem Noted Date Coronary artery disease involving [place] coronary artery of [place] heart 11/16 without angina pectoris Paroxysmal atrial [...] Meghan Murdock NP Coronary artery disease involving [place] coronary artery of [place] heart without angina pectoris (Primary Dx); Paroxysmal [...] Meghan Murdock NP Coronary artery disease involving [place] coronary artery of [place] heart without angina pectoris (Primary Dx); Paroxysmal [...] 02/16/2017 Appointment Cardiology Meghan Murdock, [address] [address] [place] [address] [phone] (Fax) 11/10/2017 Appointment Urology Cayden Wall PA-C [facility] [address] [phone] (Fax) Health Maintenance Due Date Last Done Comments Lab-Lipids 1980 LAB-HgA1C 1983 Eye (Ophthalmology) Exam 1988 Foot Exam 1988 Lab-Urine Microalbumin 1988 Tetanus/Pertussis (1 - Tdap) 1997 Influenza Immunization (#1) 2016 Results from Last 3 Months EKG 12 lead (11/10/2016 7:17 AM)Only the most recent of2 resultswithin the time period is included. Narrative Vent Rate: 96 bpm RR Interval: 623 msec [place] Interval: 278 msec QRS Duration: 118 msec QT Interval: 400 msec QTC Interval: 453 msec P-R-T [place]: -84 - -49 - -21 degrees ELECTRONIC ATRIAL PACEMAKER LEFT ANTERIOR FASCICULAR BLOCK[QRS AXIS <=-45, QR IN I, RS IN II] MODERATE T-WAVE ABNORMALITY, CONSIDER INFERIOR ISCHEMIA[-0.1+ mV T WAVE IN II/aVF] ABNORMAL ECG Electronically Signed By: Malinda Galaviz Procedure Note Ian, External Ris In - MonNovember 14, 2016 12:36 PM CDT Vent Rate: 96 bpm RR Interval: 623 msec [place] Interval: 278 msec QRS Duration: 118 msec QT Interval: 400 msec QTC Interval: 453 msec P-R-T [place]: -84 - -49 - -21 degrees ELECTRONIC [...] Yellow Yellow Clarity, Fluid Clear Clear Specific [place] 1.021 1.001-1.035 pH 6.0 5.0-8.0 Leukocyte Esterase, [...] Specimen Cln Catch Narrative Testing performed at [facility], [address] [place] [address].Licensed Reactor Operator Guille Cruz MD Urine culture (11/03/2016 2:05 PM)Only the most recent of2 resultswithin the time period is included. Component Value Range Urine Culture, Routine Microbiology resultsComment: NGUYEN TYPE Clean Catch RESULT NO GROWTH Narrative This order was split into 2 orders: [id number] (UA WITH MICRO), [id number] (Urine Culture) Testing performed at [facility], [address] [place] [address].Licensed Reactor Operator uGille Cruz MD US SCROTUM AND CONTENTS (11/03/2016 [...] ELECTRONICALLY SIGNED REPORT BY READING PHYSICIAN: Mikey [id number] 15:22:04 Procedure Note Ian, External Ris In [...]
[2016-12-16] MEDS ORDERED: RINGERS SOLUTION,LACTATED 1,000 ML IV ONE ×2 (12:00→13:04)
[2016-12-16] MEDS ORDERED: ceFAZolin SODIUM 1 GM in DEXTROSE 5 % IN WATER 100 ML IV PRN ×2 (12:05)
[2016-12-16] MEDS ORDERED: RINGERS SOLUTION,LACTATED 1,000 ML IV PRN (12:05)
[2016-12-16] MEDS ORDERED: MORPHINE SULFATE 2 MG/ML DISP.SYRIN IV PRN (12:06)
[2016-12-16] MEDS ORDERED: ONDANSETRON HCL/PF 2 MG/ML VIAL IV PRN (12:06)
[2016-12-16 16:33] VITALS: BP 112/78
[2016-12-22 10:25] LABS: Stone Composition 2 DNR
== END 2016-12-16 11:45 | disposition home or self-care (01) ==
LOC: AMB 11:44
PROVIDERS: ATTEND Urology
PROC: 0T768DZ Dilation of Right Ureter with Intraluminal Device, Via Natural or Artificial Opening Endoscopic (ICD-10-PCS; 2016-12-16)
PROC: 0TC68ZZ Extirpation of Matter from Right Ureter, Via Natural or Artificial Opening Endoscopic (ICD-10-PCS; principal; 2016-12-16 12:00)
DX: N20.1 Calculus of ureter (principal); E66.9 Obesity, unspecified; Z68.42 Body mass index [BMI] 45.0-49.9, adult